=== PATIENT | female | born 1955 | race Caucasian/White ===

== ENCOUNTER 2021-10-02 19:50 | Inpatient (IN) | payer MEDICARE ==
[~2021-10-02] VITALS: Ht 167.6 cm; Wt 84.2 kg
[2021-10-02 20:39] LABS: Basophils # (auto) 0 10 ^3/uL (0-0.2); Basophils % (auto) 0.1 % (0.0-2.0); Eosinophils # (auto) 0 10 ^3/uL (0-0.8); Eosinophils % (auto) 0.1 % (0.0-7.0); Hematocrit 28.8 % (36.0-46.0); Lymphocytes # (auto) 0.5 10 ^3/uL (0.4-5.4); Lymphocytes % (auto) 4.6 % (10.0-50.0); Mean Corpuscular Hemoglobin 31.3 pg (28.0-32.0); Mean Corpuscular Hgb Conc. 34.9 g/dL (32.0-36.0); Mean Corpuscular Volume 89.7 fL (80.0-100.0); Monocytes # (auto) 0.3 10 ^3/uL (0-1.3); Monocytes % (auto) 3.3 % (0.0-12.0); Neutrophils # (auto) 9.3 10 ^3/uL (1.6-8.6); Neutrophils % (auto) 91.9 % (37.0-80.0); Nucleated Red Blood Cells % 0.3 %; Red Blood Cells 3.21 10^6/uL (4.0-5.20); Red Cell Distribution Width 17.8 % (11.8-14.3); White Blood Cell 10.1 10^3/uL (4.4-10.8)
[2021-10-02 20:53] LABS: Albumin 1.4 g/dL (3.4-5.0); Calcium 6.6 mg/dL (8.5-10.1)
[2021-10-02 20:55] LABS: Bilirubin, Total 0.6 mg/dL (0.2-1.0); Total Protein 6.6 g/dL (6.4-8.2)
[2021-10-02] MEDS ORDERED: cefTRIAXone 1GM/50ML D5W 50 ML IV ONE (21:00)
[2021-10-02] MEDS ORDERED: VANCOMYCIN PER PHARMACY 0 MG IV SCH (21:00)
[2021-10-02] MEDS ORDERED: VANCOMYCIN 1GM/250ML 250 ML IV ONE (21:00)
[2021-10-02] MEDS ORDERED: POTASSIUM EFFERVESENT TAB 25 MEQ PO ONE (21:45)
[2021-10-02 22:17] LABS: INR 1.7 (0.9-1.15)
[2021-10-03] MEDS ORDERED: HEPARIN DRIP/D5W 100UNITS/ML 250 ML IV SCH (01:00)
[2021-10-03] MEDS ORDERED: HEPARIN SODIUM (PORCINE) 5000 UNITS/ML 1ML VIAL IV ONE (01:00)
[2021-10-03 01:38] LABS: Urine WBC None Seen /hpf (0 - 5)
[2021-10-03 01:48] LABS: Urine Bacteria NONE SEEN /hpf (None Seen); Urine Blood Negative /uL (Negative); Urine Specific Gravity 1.007 (1.001-1.035)
[2021-10-03] MEDS ORDERED: ALBUMIN 25% 100 ML IV ONE (02:15)
[2021-10-03] MEDS ORDERED: DOCUSATE SOD 100 MG CAP PO PRN (02:15)
[2021-10-03] MEDS ORDERED: HYDROcodone-ACET 5/325MG TAB PO PRN (02:15)
[2021-10-03] MEDS ORDERED: SODIUM CHLORIDE 0.9% 1,000 ML IV SCH (02:15)
[2021-10-03] MEDS ORDERED: ACETAMINOPHEN 325 MG TAB PO PRN (02:15)
[2021-10-03] MEDS ORDERED: ONDANSETRON HCL 4 MG/2 ML VIAL IV PRN (02:15)
[2021-10-03] MEDS ORDERED: NITROGLYCERIN 0.4 MG SL TAB SL PRN (02:45)
[2021-10-03] MEDS ORDERED: POTASSIUM CHL 20MEQ/100ML 100 ML IV ONE (04:36)
[2021-10-03] MEDS: POTASSIUM CHL 20MEQ/100ML 100 ML IV SCH ×4 (04:45→13:35)
[2021-10-03 07:37] LABS: Basophils # (auto) 0 10 ^3/uL (0-0.2); Basophils % (auto) 0.2 % (0.0-2.0); Eosinophils # (auto) 0 10 ^3/uL (0-0.8); Hematocrit 29.3 % (36.0-46.0); Hemoglobin 10.1 g/dL (12.2-16.2); Lymphocytes # (auto) 0.8 10 ^3/uL (0.4-5.4); Mean Corpuscular Hgb Conc. 34.6 g/dL (32.0-36.0); Mean Corpuscular Volume 92.5 fL (80.0-100.0); Monocytes # (auto) 0.4 10 ^3/uL (0-1.3); Monocytes % (auto) 3.6 % (0.0-12.0); Neutrophils # (auto) 10.1 10 ^3/uL (1.6-8.6); Neutrophils % (auto) 89.2 % (37.0-80.0); Nucleated Red Blood Cells % 0.2 %; Red Blood Cells 3.16 10^6/uL (4.0-5.20); Red Cell Distribution Width 18.4 % (11.8-14.3); White Blood Cell 11.3 10^3/uL (4.4-10.8)
[2021-10-03 07:54] LABS: Albumin 1.7 g/dL (3.4-5.0); Calcium 6.6 mg/dL (8.5-10.1)
[2021-10-03 07:57] LABS: BUN/Creatinine Ratio 10.7; Bilirubin, Total 0.7 mg/dL (0.2-1.0); Total Protein 6.7 g/dL (6.4-8.2)
[2021-10-03 08:15] LABS: Potassium 2.7 mmol/L (3.5-5.1)
[2021-10-03] MEDS ORDERED: ENOXAPARIN SOD 100 MG/1 ML SYRINGE SC SCH (10:00)
[2021-10-03] MEDS: SODIUM CHLORIDE 0.9% 1,000 ML IV SCH ×2 (10:42→15:42)
[2021-10-03] MEDS: FAMOTIDINE (10MG/ML) 2ML VL IV SCH ×2 (11:06→22:00)
[2021-10-03] MEDS: HEPARIN SODIUM (PORCINE) 5000 UNITS/ML 1ML VIAL SC SCH (11:07)
[2021-10-03 12:26] LABS: INR 1.6 (0.9-1.15)
[2021-10-03] MEDS ORDERED: MAGNESIUM SULFATE 1GM/100ML 100 ML IV ONE (14:15)
[2021-10-03] MEDS ORDERED: CEFTRIAXONE SODIUM 2 GM in D5W 5% 50 ML IV ONE (17:45)
[2021-10-03] MEDS ORDERED: VANCOMYCIN 500 MG in D5W 5% 100 ML IV ONE (21:00)
[2021-10-03] MEDS: MAGNESIUM SULFATE 1GM/100ML 100 ML IV SCH (22:30)
[2021-10-03] MEDS ORDERED: VANCOMYCIN 1GM/250ML 250 ML IV ONE (22:39)
[2021-10-04] MEDS: LORazepam 2MG/ML-1ML VIAL IV PRN ×3 (00:51→20:46)
[2021-10-04] MEDS: HEPARIN SODIUM (PORCINE) 5000 UNITS/ML 1ML VIAL SC SCH ×2 (01:00→11:52)
[2021-10-04 01:24] LABS: BUN/Creatinine Ratio 11.5; Calcium 6.5 mg/dL (8.5-10.1)
[2021-10-04] MEDS: SODIUM CHLORIDE 0.9% 1,000 ML IV SCH ×4 (01:27→22:00)
[2021-10-04 01:31] LABS: Potassium 2.5 mmol/L (3.5-5.1)
[2021-10-04] MEDS: MAGNESIUM SULFATE 1GM/100ML 100 ML IV SCH ×3 (02:00→12:05)
[2021-10-04] MEDS: POTASSIUM CHL 20MEQ/100ML 100 ML IV SCH ×7 (06:15→23:46)
[2021-10-04 10:29] LABS: Hematocrit 25.4 % (36.0-46.0); Hemoglobin 8.7 g/dL (12.2-16.2); Mean Corpuscular Hgb Conc. 34.1 g/dL (32.0-36.0); Red Blood Cells 2.71 10^6/uL (4.0-5.20); Red Cell Distribution Width 18.1 % (11.8-14.3); White Blood Cell 9.6 10^3/uL (4.4-10.8)
[2021-10-04 10:39] LABS: Basophils % (manual) 0 (0.0-2.0); Blast Cells 0; Eosinophils % (manual) 0 (0-7); Metamyelocytes % 0; Myelocytes % 0; Promyelocytes % 0; Reactive Lymphocytes 0
[2021-10-04] MEDS: FAMOTIDINE (10MG/ML) 2ML VL IV SCH ×2 (10:43→22:00)
[2021-10-04 10:56] LABS: Albumin 1.4 g/dL (3.4-5.0); Calcium 6.5 mg/dL (8.5-10.1); Magnesium 2.5 mg/dL (1.6-2.6); Potassium 3.3 mmol/L (3.5-5.1)
[2021-10-04 11:01] LABS: BUN/Creatinine Ratio 11.8; Bilirubin, Total 0.5 mg/dL (0.2-1.0)
[2021-10-04 11:04] LABS: Band Neutrophils % (manual) 11; Lymphocytes % (manual) 9 (10.0-50.0); Monocytes % (manual) 2 (0-12)
[2021-10-04] MEDS: CEFTRIAXONE SODIUM 2 GM in D5W 5% 50 ML IV SCH (11:15)
[2021-10-04] MEDS ORDERED: TPN PER PHARMACY 0 ML IV SCH (12:00)
[2021-10-04] MEDS ORDERED: DEXTROSE (50%) 50ML SYRG IV PRN (12:00)
[2021-10-04] MEDS: ACCU-CHEK COMFORT CURVE STRIP VI SCH ×2 (12:05→18:10)
[2021-10-04] MEDS ORDERED: MAGNESIUM SULFATE 1GM/100ML 100 ML IV SCH (13:30)
[2021-10-04 13:48] LABS: Phosphorus 2.4 mg/dL (2.5-4.90)
[2021-10-04] MEDS ORDERED: SODIUM PHOSP 20MEQ(15MMOL) IN NS 100 ML IV ONE (15:15)
[2021-10-04 15:52] LABS: BUN/Creatinine Ratio 12.4; Calcium 6.6 mg/dL (8.5-10.1)
[2021-10-04] MEDS: InsuLIN REG 1unit/0.01ml Soln (100units/ml) SC SCH (18:00)
[2021-10-04 18:43] LABS: INR 1.41 (0.9-1.15); Partial Thromboplastin Time 48.1 sec (23.6-33.0)
[2021-10-04] MEDS ORDERED: FUROSEMIDE 100 MG/10ML VIAL IV ONE (19:00)
[2021-10-04] MEDS ORDERED: AMINO ACID INFUSION IN D10W 1,000 ML IV NR (20:00)
[2021-10-04 20:13] LABS: Hematocrit 23.5 % (36.0-46.0); Hemoglobin 8.1 g/dL (12.2-16.2)
[2021-10-05] MEDS: ACCU-CHEK COMFORT CURVE STRIP VI SCH ×4 (00:03→18:21)
[2021-10-05 00:10] LABS: Basophils # (auto) 0 10 ^3/uL (0-0.2); Eosinophils # (auto) 0 10 ^3/uL (0-0.8); Red Cell Distribution Width 18.4 % (11.8-14.3)
[2021-10-05 00:12] LABS: Basophils % (auto) 0.4 % (0.0-2.0); Eosinophils % (auto) 0.2 % (0.0-7.0); Hematocrit 22.4 % (36.0-46.0); Hemoglobin 7.9 g/dL (12.2-16.2); Lymphocytes # (auto) 0.5 10 ^3/uL (0.4-5.4); Lymphocytes % (auto) 6.3 % (10.0-50.0); Mean Corpuscular Hemoglobin 32.1 pg (28.0-32.0); Mean Corpuscular Hgb Conc. 35.2 g/dL (32.0-36.0); Mean Corpuscular Volume 91.1 fL (80.0-100.0); Monocytes # (auto) 0.3 10 ^3/uL (0-1.3); Monocytes % (auto) 3.1 % (0.0-12.0); Neutrophils # (auto) 7.4 10 ^3/uL (1.6-8.6); Nucleated Red Blood Cells % 0.2 %; Red Blood Cells 2.46 10^6/uL (4.0-5.20); White Blood Cell 8.2 10^3/uL (4.4-10.8)
[2021-10-05 00:41] LABS: Albumin 1.4 g/dL (3.4-5.0); Calcium 6.6 mg/dL (8.5-10.1); Potassium 3.3 mmol/L (3.5-5.1)
[2021-10-05 00:43] LABS: BUN/Creatinine Ratio 12.5
[2021-10-05] MEDS ORDERED: PANTOPRAZOLE 40 MG/10 ML VIAL INJ IV ONE (00:45)
[2021-10-05 00:46] LABS: Bilirubin, Total 0.4 mg/dL (0.2-1.0); Total Protein 5.5 g/dL (6.4-8.2)
[2021-10-05 03:22] LABS: Albumin 1.4 g/dL (3.4-5.0); BUN/Creatinine Ratio 11.9; Calcium 6.6 mg/dL (8.5-10.1); Potassium 3.7 mmol/L (3.5-5.1)
[2021-10-05 03:25] LABS: Bilirubin, Total 0.4 mg/dL (0.2-1.0); Total Protein 5.6 g/dL (6.4-8.2)
[2021-10-05] MEDS: POTASSIUM CHL 20MEQ/100ML 100 ML IV SCH (03:59)
[2021-10-05 04:59] LABS: Basophils # (auto) 0.1 10 ^3/uL (0-0.2); Eosinophils # (auto) 0 10 ^3/uL (0-0.8); Hemoglobin 7.8 g/dL (12.2-16.2); Lymphocytes # (auto) 0.5 10 ^3/uL (0.4-5.4); Mean Corpuscular Hemoglobin 31.7 pg (28.0-32.0); White Blood Cell 7.7 10^3/uL (4.4-10.8)
[2021-10-05 05:01] LABS: Basophils % (auto) 0.9 % (0.0-2.0); Hematocrit 22.4 % (36.0-46.0); Lymphocytes % (auto) 6.4 % (10.0-50.0); Mean Corpuscular Hgb Conc. 34.7 g/dL (32.0-36.0); Mean Corpuscular Volume 91.5 fL (80.0-100.0); Monocytes # (auto) 0.3 10 ^3/uL (0-1.3); Monocytes % (auto) 3.4 % (0.0-12.0); Neutrophils # (auto) 6.8 10 ^3/uL (1.6-8.6); Neutrophils % (auto) 89.3 % (37.0-80.0); Nucleated Red Blood Cells % 0.3 %; Red Blood Cells 2.45 10^6/uL (4.0-5.20); Red Cell Distribution Width 18.2 % (11.8-14.3)
[2021-10-05 05:23] LABS: Albumin 1.4 g/dL (3.4-5.0); BUN/Creatinine Ratio 12.4; Calcium 6.7 mg/dL (8.5-10.1); Magnesium 2.2 mg/dL (1.6-2.6); Potassium 3.3 mmol/L (3.5-5.1)
[2021-10-05 05:25] LABS: Bilirubin, Total 0.4 mg/dL (0.2-1.0); Phosphorus 2.4 mg/dL (2.5-4.90); Total Protein 5.4 g/dL (6.4-8.2)
[2021-10-05] MEDS: InsuLIN REG 1unit/0.01ml Soln (100units/ml) SC SCH ×4 (06:00→18:37)
[2021-10-05] MEDS ORDERED: POTASSIUM PHOSPHATE 44 MEQ in D5W 5% 250 ML IV ONE (09:00)
[2021-10-05] MEDS ORDERED: POTASSIUM CHL 20MEQ/100ML 100 ML IV ONE (09:00)
[2021-10-05] MEDS: FAMOTIDINE (10MG/ML) 2ML VL IV SCH ×2 (10:00→22:07)
[2021-10-05] MEDS: POTASSIUM EFFERVESENT TAB 25 MEQ PO SCH ×2 (10:00→21:56)
[2021-10-05] MEDS: FUROSEMIDE 40 MG/4 ML VIAL IV SCH ×2 (10:00→16:15)
[2021-10-05] MEDS: CEFTRIAXONE SODIUM 2 GM in D5W 5% 50 ML IV SCH (10:04)
[2021-10-05] MEDS: SODIUM CHLORIDE 0.9% 1,000 ML IV SCH ×2 (10:05→13:46)
[2021-10-05] MEDS: PANTOPRAZOLE 40 MG/10 ML VIAL INJ IV SCH ×2 (10:25→22:07)
[2021-10-05] MEDS ORDERED: VANCOMYCIN 500 MG in D5W 5% 100 ML IV ONE (14:00)
[2021-10-05] MEDS: MORPHINE SULFATE INJ 2 MG/ml SYRG IV PRN (14:14)
[2021-10-05] MEDS: POTASSIUM CHL 20MEQ/100ML 100 ML IV ONE ×2 (16:00→18:16)
[2021-10-05] MEDS ORDERED: TPN PER PHARMACY IV NR ×8 (20:00)
[2021-10-06] MEDS: ACCU-CHEK COMFORT CURVE STRIP VI SCH ×4 (00:02→18:25)
[2021-10-06] MEDS: MORPHINE SULFATE INJ 2 MG/ml SYRG IV PRN ×2 (01:25→08:21)
[2021-10-06 05:44] LABS: Basophils # (auto) 0 10 ^3/uL (0-0.2); Basophils % (auto) 0.4 % (0.0-2.0); Eosinophils # (auto) 0 10 ^3/uL (0-0.8); Eosinophils % (auto) 0.1 % (0.0-7.0); Hematocrit 20.3 % (36.0-46.0); Hemoglobin 7.1 g/dL (12.2-16.2); Lymphocytes # (auto) 0.9 10 ^3/uL (0.4-5.4); Mean Corpuscular Hemoglobin 32.5 pg (28.0-32.0); Mean Corpuscular Hgb Conc. 35.1 g/dL (32.0-36.0); Mean Corpuscular Volume 92.5 fL (80.0-100.0); Monocytes # (auto) 0.3 10 ^3/uL (0-1.3); Monocytes % (auto) 4.5 % (0.0-12.0); Neutrophils # (auto) 5.4 10 ^3/uL (1.6-8.6); Nucleated Red Blood Cells % 0.1 %; Red Cell Distribution Width 18.7 % (11.8-14.3); White Blood Cell 6.6 10^3/uL (4.4-10.8)
[2021-10-06 05:59] LABS: Albumin 1.3 g/dL (3.4-5.0); BUN/Creatinine Ratio 13.9; Calcium 6.7 mg/dL (8.5-10.1); Magnesium 1.9 mg/dL (1.6-2.6); Potassium 3.3 mmol/L (3.5-5.1)
[2021-10-06] MEDS: SODIUM CHLORIDE 0.9% 1,000 ML IV SCH ×2 (06:00→21:19)
[2021-10-06] MEDS: InsuLIN REG 1unit/0.01ml Soln (100units/ml) SC SCH ×4 (06:00→18:33)
[2021-10-06 06:17] LABS: Bilirubin, Total 0.3 mg/dL (0.2-1.0); Phosphorus 3.1 mg/dL (2.5-4.90)
[2021-10-06] MEDS ORDERED: diphenhdrAMINE HCL 50 MG/1 ML VL ONE (08:26)
[2021-10-06] MEDS ORDERED: LIDOCAINE VISCOUS 2% 15ML UD ONE (08:26)
[2021-10-06] MEDS ORDERED: SODIUM CHLORIDE LOCK 10 ML ONE (08:27)
[2021-10-06] MEDS ORDERED: POTASSIUM CHL 20MEQ/100ML 100 ML IV ONE (08:45)
[2021-10-06] MEDS: POTASSIUM EFFERVESENT TAB 25 MEQ PO SCH (10:00)
[2021-10-06] MEDS: FUROSEMIDE 40 MG/4 ML VIAL IV SCH (10:00)
[2021-10-06] MEDS: PANTOPRAZOLE 40 MG/10 ML VIAL INJ IV SCH ×2 (10:37→21:24)
[2021-10-06] MEDS: FAMOTIDINE (10MG/ML) 2ML VL IV SCH (10:41)
[2021-10-06] MEDS ORDERED: MORPHINE SULFATE INJ 2 MG/ml SYRG IV PRN ×2 (11:45→13:15)
[2021-10-06] MEDS: CEFTRIAXONE SODIUM 2 GM in D5W 5% 50 ML IV SCH (11:50)
[2021-10-06] MEDS: fentaNYL CITRATE 100 MCG/2 ML VL ONE ×2 (14:07→14:12)
[2021-10-06] MEDS: MIDAZOLAM HCL 5 MG/ML-1ML VIAL ONE ×2 (14:07→14:10)
[2021-10-06] MEDS ORDERED: METO-289 PO (16:44)
[2021-10-06] MEDS ORDERED: FLEC100T PO (16:48)
[2021-10-06] MEDS ORDERED: POTA1TAB4 (16:48)
[2021-10-06] MEDS ORDERED: HYDR-4611 (16:48)
[2021-10-06] MEDS ORDERED: ONDA-188 PO (16:48)
[2021-10-06] MEDS ORDERED: DICY20TA PO (16:48)
[2021-10-06] MEDS ORDERED: AMIO200T4 PO (16:48)
[2021-10-06] MEDS ORDERED: FUR20T PO (16:48)
[2021-10-06] MEDS ORDERED: SERT50TA19 PO (16:58)
[2021-10-06 17:00] VITALS: BP 121/50
[2021-10-06] MEDS ORDERED: APIX5TAB PO (17:06)
[2021-10-06 17:09] VITALS: BP 121/50
[2021-10-06 20:00] VITALS: BP 108/60
[2021-10-06] MEDS ORDERED: TPN PER PHARMACY IV NR ×8 (20:00)
[2021-10-06] MEDS: LORazepam 2MG/ML-1ML VIAL IV PRN (21:12)
[2021-10-06 21:51] VITALS: BP 109/60
[2021-10-07] VITALS (7 sets, daily range): BP systolic 94–120; BP diastolic 50–75
[2021-10-07] MEDS: ACCU-CHEK COMFORT CURVE STRIP VI SCH ×4 (02:21→18:13)
[2021-10-07] MEDS: InsuLIN REG 1unit/0.01ml Soln (100units/ml) SC SCH ×4 (02:31→18:12)
[2021-10-07 05:39] LABS: Basophils # (auto) 0 10 ^3/uL (0-0.2); Eosinophils # (auto) 0 10 ^3/uL (0-0.8); Hemoglobin 7.3 g/dL (12.2-16.2)
[2021-10-07 05:42] LABS: Basophils % (auto) 0.1 % (0.0-2.0); Eosinophils % (auto) 0.4 % (0.0-7.0); Hematocrit 20.8 % (36.0-46.0); Lymphocytes # (auto) 0.8 10 ^3/uL (0.4-5.4); Lymphocytes % (auto) 11.4 % (10.0-50.0); Mean Corpuscular Hemoglobin 32.5 pg (28.0-32.0); Mean Corpuscular Hgb Conc. 35.1 g/dL (32.0-36.0); Mean Corpuscular Volume 92.8 fL (80.0-100.0); Monocytes # (auto) 0.3 10 ^3/uL (0-1.3); Monocytes % (auto) 4.2 % (0.0-12.0); Neutrophils # (auto) 6.1 10 ^3/uL (1.6-8.6); Neutrophils % (auto) 83.9 % (37.0-80.0); Nucleated Red Blood Cells % 0.3 %; Red Blood Cells 2.25 10^6/uL (4.0-5.20); White Blood Cell 7.2 10^3/uL (4.4-10.8)
[2021-10-07 05:56] LABS: Albumin 1.2 g/dL (3.4-5.0); BUN/Creatinine Ratio 15.8; Calcium 6.7 mg/dL (8.5-10.1); Magnesium 1.8 mg/dL (1.6-2.6); Potassium 3.6 mmol/L (3.5-5.1)
[2021-10-07 05:59] LABS: Bilirubin, Total 0.3 mg/dL (0.2-1.0); Phosphorus 2.3 mg/dL (2.5-4.90)
[2021-10-07] MEDS ORDERED: POTASSIUM PHOSP 22MEQ(15MMOLE) in NS 100 ML IV ONE (08:30)
[2021-10-07] MEDS: PANTOPRAZOLE 40 MG/10 ML VIAL INJ IV SCH ×2 (10:16→22:17)
[2021-10-07] MEDS: FAMOTIDINE (10MG/ML) 2ML VL IV SCH (10:17)
[2021-10-07] MEDS: CEFTRIAXONE SODIUM 2 GM in D5W 5% 50 ML IV SCH (10:18)
[2021-10-07] MEDS ORDERED: HYDR-4798 PO (10:38)
[2021-10-07] MEDS: FUROSEMIDE 40 MG/4 ML VIAL IV SCH (10:45)
[2021-10-07] MEDS ORDERED: ACETAMINOPHEN 650 MG RECT SUPP PR ONE (16:45)
[2021-10-07] MEDS: SODIUM CHLORIDE 0.9% 1,000 ML IV SCH (16:49)
[2021-10-07] MEDS ORDERED: VANCOMYCIN 500 MG in D5W 5% 100 ML IV ONE (18:00)
[2021-10-07] MEDS: TPN PER PHARMACY IV NR ×8 (20:07)
[2021-10-08] VITALS (7 sets, daily range): BP systolic 90–123; BP diastolic 54–77
[2021-10-08] MEDS: InsuLIN REG 1unit/0.01ml Soln (100units/ml) SC SCH ×4 (00:08→17:53)
[2021-10-08] MEDS: ACCU-CHEK COMFORT CURVE STRIP VI SCH ×4 (00:08→17:53)
[2021-10-08 05:59] LABS: Basophils # (auto) 0.1 10 ^3/uL (0-0.2); Eosinophils # (auto) 0 10 ^3/uL (0-0.8); Eosinophils % (auto) 0.3 % (0.0-7.0); Monocytes # (auto) 0.4 10 ^3/uL (0-1.3); Red Blood Cells 2.47 10^6/uL (4.0-5.20)
[2021-10-08 06:02] LABS: Basophils % (auto) 1.1 % (0.0-2.0); Hematocrit 22.8 % (36.0-46.0); Hemoglobin 7.9 g/dL (12.2-16.2); Lymphocytes # (auto) 0.8 10 ^3/uL (0.4-5.4); Lymphocytes % (auto) 7.4 % (10.0-50.0); Mean Corpuscular Hemoglobin 32.1 pg (28.0-32.0); Mean Corpuscular Hgb Conc. 34.8 g/dL (32.0-36.0); Mean Corpuscular Volume 92.3 fL (80.0-100.0); Neutrophils # (auto) 9.6 10 ^3/uL (1.6-8.6); Neutrophils % (auto) 87.2 % (37.0-80.0); Nucleated Red Blood Cells % 0.2 %; Red Cell Distribution Width 17.8 % (11.8-14.3)
[2021-10-08 06:23] LABS: Potassium 3.9 mmol/L (3.5-5.1)
[2021-10-08 06:27] LABS: Albumin 1.1 g/dL (3.4-5.0); BUN/Creatinine Ratio 17.3; Bilirubin, Total 0.4 mg/dL (0.2-1.0); Magnesium 1.9 mg/dL (1.6-2.6); Total Protein 5.4 g/dL (6.4-8.2)
[2021-10-08] MEDS ORDERED: SODIUM PHOSP 40 MEQ in D5W 5% 250 ML IV ONE (09:15)
[2021-10-08] MEDS ORDERED: FUROSEMIDE 40 MG/4 ML VIAL IV SCH (10:00)
[2021-10-08] MEDS: FAMOTIDINE (10MG/ML) 2ML VL IV SCH (11:09)
[2021-10-08] MEDS: PANTOPRAZOLE 40 MG/10 ML VIAL INJ IV SCH ×2 (11:10→21:39)
[2021-10-08] MEDS: CEFTRIAXONE SODIUM 2 GM in D5W 5% 50 ML IV SCH (11:11)
[2021-10-08] MEDS: TPN PER PHARMACY IV NR ×8 (19:57)
[2021-10-08] MEDS ORDERED: TPN PER PHARMACY IV NR ×9 (20:00)
[2021-10-09] MEDS: ACCU-CHEK COMFORT CURVE STRIP VI SCH ×4 (00:13→18:10)
[2021-10-09] MEDS: InsuLIN REG 1unit/0.01ml Soln (100units/ml) SC SCH ×4 (00:23→18:10)
[2021-10-09 05:00] VITALS: BP 114/70
[2021-10-09] MEDS: MORPHINE SULFATE INJ 2 MG/ml SYRG IV PRN ×2 (05:27→22:20)
[2021-10-09 07:58] LABS: Hematocrit 21.9 % (36.0-46.0); Hemoglobin 7.6 g/dL (12.2-16.2); Mean Corpuscular Hgb Conc. 34.6 g/dL (32.0-36.0); Mean Corpuscular Volume 92.5 fL (80.0-100.0); Red Blood Cells 2.37 10^6/uL (4.0-5.20); Red Cell Distribution Width 18.3 % (11.8-14.3); White Blood Cell 9.1 10^3/uL (4.4-10.8)
[2021-10-09 08:02] LABS: Band Neutrophils % (manual) 0; Basophils % (manual) 0 (0.0-2.0); Blast Cells 0; Eosinophils % (manual) 0 (0-7); Metamyelocytes % 0; Promyelocytes % 0; Reactive Lymphocytes 0
[2021-10-09 08:21] LABS: Albumin 1.1 g/dL (3.4-5.0); Calcium 7.6 mg/dL (8.5-10.1); Magnesium 2.5 mg/dL (1.6-2.6); Potassium 3.3 mmol/L (3.5-5.1)
[2021-10-09 08:27] LABS: BUN/Creatinine Ratio 20.5; Bilirubin, Total 0.4 mg/dL (0.2-1.0); Phosphorus 4.8 mg/dL (2.5-4.90); Total Protein 5.7 g/dL (6.4-8.2)
[2021-10-09 08:46] LABS: Lymphocytes % (manual) 8 (10.0-50.0); Monocytes % (manual) 6 (0-12); Myelocytes % 1
[2021-10-09 09:00] VITALS: BP 119/64
[2021-10-09] MEDS: SOD CHL 0.45% 1,000 ML IV SCH ×2 (10:00→10:30)
[2021-10-09] MEDS: CEFTRIAXONE SODIUM 2 GM in D5W 5% 50 ML IV SCH (10:00)
[2021-10-09] MEDS: PANTOPRAZOLE 40 MG/10 ML VIAL INJ IV SCH ×2 (10:29→21:07)
[2021-10-09] MEDS: FAMOTIDINE (10MG/ML) 2ML VL IV SCH (10:29)
[2021-10-09] MEDS: POTASSIUM CHL 20MEQ/100ML 100 ML IV SCH ×2 (10:30→11:00)
[2021-10-09 13:07] VITALS: BP 130/75
[2021-10-09 17:00] VITALS: BP 124/73
[2021-10-09] MEDS ORDERED: POTASSIUM CHL 20MEQ/100ML 100 ML IV ONE (17:30)
[2021-10-09] MEDS ORDERED: TPN PER PHARMACY IV NR ×8 (20:00)
[2021-10-09] MEDS ORDERED: D5W 5% 1,000 ML IV SCH (21:00)
[2021-10-09 22:00] VITALS: BP 133/79
[2021-10-10] MEDS: LORazepam 2MG/ML-1ML VIAL IV PRN ×2 (00:12→11:38)
[2021-10-10] MEDS: InsuLIN REG 1unit/0.01ml Soln (100units/ml) SC SCH ×3 (00:16→12:00)
[2021-10-10] MEDS: ACCU-CHEK COMFORT CURVE STRIP VI SCH ×3 (00:17→12:00)
[2021-10-10 05:00] VITALS: BP_SYST 115; BP_SYST 155; BP_DIAS 58; BP_DIAS 77
[2021-10-10 09:00] VITALS: BP 128/77
[2021-10-10 10:27] LABS: Hemoglobin 7.3 g/dL (12.2-16.2); Monocytes # (auto) 0.4 10 ^3/uL (0-1.3); Neutrophils # (auto) 6.1 10 ^3/uL (1.6-8.6)
[2021-10-10 10:29] LABS: Basophils # (auto) 0 10 ^3/uL (0-0.2); Basophils % (auto) 0.4 % (0.0-2.0); Eosinophils # (auto) 0.1 10 ^3/uL (0-0.8); Eosinophils % (auto) 0.7 % (0.0-7.0); Hematocrit 21.1 % (36.0-46.0); Lymphocytes # (auto) 1.2 10 ^3/uL (0.4-5.4); Lymphocytes % (auto) 15.6 % (10.0-50.0); Mean Corpuscular Hgb Conc. 34.4 g/dL (32.0-36.0); Mean Corpuscular Volume 93.3 fL (80.0-100.0); Neutrophils % (auto) 78.3 % (37.0-80.0); Nucleated Red Blood Cells % 0.3 %; Red Blood Cells 2.27 10^6/uL (4.0-5.20); Red Cell Distribution Width 18.8 % (11.8-14.3); White Blood Cell 7.9 10^3/uL (4.4-10.8)
[2021-10-10 10:44] LABS: Potassium 4.4 mmol/L (3.5-5.1)
[2021-10-10 10:48] LABS: BUN/Creatinine Ratio 24.1; Calcium 7.3 mg/dL (8.5-10.1); Phosphorus 3.2 mg/dL (2.5-4.90)
[2021-10-10 10:56] LABS: Calcium 7.6 mg/dL (8.5-10.1); Magnesium 2.4 mg/dL (1.6-2.6); Potassium 4.4 mmol/L (3.5-5.1)
[2021-10-10 10:59] LABS: BUN/Creatinine Ratio 23.5; Bilirubin, Total 0.3 mg/dL (0.2-1.0); Phosphorus 3.3 mg/dL (2.5-4.90); Pre Albumin 8.2 mg/dL (20.0-40.0); Total Protein 5.5 g/dL (6.4-8.2)
[2021-10-10] MEDS: CEFTRIAXONE SODIUM 2 GM in D5W 5% 50 ML IV SCH (11:33)
[2021-10-10] MEDS: PANTOPRAZOLE 40 MG/10 ML VIAL INJ IV SCH ×2 (11:33→21:26)
[2021-10-10 13:00] VITALS: BP 102/66
[2021-10-10] MEDS ORDERED: VANCOMYCIN 500 MG in D5W 5% 100 ML IV ONE (13:00)
[2021-10-10] MEDS ORDERED: FUROSEMIDE 40 MG/4 ML VIAL IV ONE (13:15)
[2021-10-10 17:00] VITALS: BP 102/77
[2021-10-10] MEDS ORDERED: TPN PER PHARMACY IV NR ×8 (20:00)
[2021-10-10] MEDS: MORPHINE SULFATE INJ 2 MG/ml SYRG IV PRN (21:27)
[2021-10-10 22:00] VITALS: BP 121/63
[2021-10-11] MEDS: MORPHINE SULFATE INJ 2 MG/ml SYRG IV PRN ×2 (04:59→15:41)
[2021-10-11 05:00] VITALS: BP 131/73
[2021-10-11] MEDS: ACCU-CHEK COMFORT CURVE STRIP VI SCH ×4 (05:38→18:00)
[2021-10-11] MEDS: InsuLIN REG 1unit/0.01ml Soln (100units/ml) SC SCH ×4 (05:39→18:00)
[2021-10-11 06:14] LABS: Basophils # (auto) 0 10 ^3/uL (0-0.2); Eosinophils # (auto) 0 10 ^3/uL (0-0.8); Hemoglobin 7.6 g/dL (12.2-16.2); Lymphocytes # (auto) 0.9 10 ^3/uL (0.4-5.4); Monocytes # (auto) 0.4 10 ^3/uL (0-1.3)
[2021-10-11 06:22] LABS: Albumin 1.1 g/dL (3.4-5.0); BUN/Creatinine Ratio 27.7; Calcium 7.7 mg/dL (8.5-10.1); Magnesium 2.2 mg/dL (1.6-2.6); Phosphorus 1.9 mg/dL (2.5-4.90); Potassium 4.9 mmol/L (3.5-5.1); Total Protein 5.5 g/dL (6.4-8.2)
[2021-10-11 06:23] LABS: Bilirubin, Total 0.4 mg/dL (0.2-1.0)
[2021-10-11 06:24] LABS: Basophils % (auto) 0.5 % (0.0-2.0); Eosinophils % (auto) 0.4 % (0.0-7.0); Hematocrit 22.4 % (36.0-46.0); Lymphocytes % (auto) 12.2 % (10.0-50.0); Mean Corpuscular Hemoglobin 32.3 pg (28.0-32.0); Mean Corpuscular Hgb Conc. 34.1 g/dL (32.0-36.0); Mean Corpuscular Volume 94.7 fL (80.0-100.0); Monocytes % (auto) 5.2 % (0.0-12.0); Neutrophils # (auto) 6.1 10 ^3/uL (1.6-8.6); Neutrophils % (auto) 81.7 % (37.0-80.0); Nucleated Red Blood Cells % 0.1 %; Red Blood Cells 2.37 10^6/uL (4.0-5.20); Red Cell Distribution Width 18.9 % (11.8-14.3); White Blood Cell 7.4 10^3/uL (4.4-10.8)
[2021-10-11 06:30] LABS: BUN/Creatinine Ratio 29.7; Calcium 7.9 mg/dL (8.5-10.1); Potassium 4.9 mmol/L (3.5-5.1)
[2021-10-11] MEDS ORDERED: SODIUM PHOSPHATES 24 MEQ in SODIUM CHL 0.9% 100 ML IV ONE (08:45)
[2021-10-11 09:00] VITALS: BP 104/68
[2021-10-11] MEDS: PANTOPRAZOLE 40 MG/10 ML VIAL INJ IV SCH ×2 (10:02→22:00)
[2021-10-11] MEDS: CEFTRIAXONE SODIUM 2 GM in D5W 5% 50 ML IV SCH (10:03)
[2021-10-11 13:00] VITALS: BP 117/75
[2021-10-11] MEDS ORDERED: FUROSEMIDE 40 MG/4 ML VIAL IV ONE (14:45)
[2021-10-11] MEDS: LORazepam 2MG/ML-1ML VIAL IV PRN (16:10)
[2021-10-11 17:00] VITALS: BP 119/78
[2021-10-11] MEDS ORDERED: TPN PER PHARMACY IV NR ×8 (20:00)
[2021-10-11 22:00] VITALS: BP 112/66
[2021-10-12] MEDS: InsuLIN REG 1unit/0.01ml Soln (100units/ml) SC SCH ×3 (00:26→14:40)
[2021-10-12] MEDS: ACCU-CHEK COMFORT CURVE STRIP VI SCH ×3 (00:26→14:30)
[2021-10-12 05:00] VITALS: BP 131/74
[2021-10-12 05:44] LABS: Basophils # (auto) 0 10 ^3/uL (0-0.2); Basophils % (auto) 0.5 % (0.0-2.0); Eosinophils # (auto) 0 10 ^3/uL (0-0.8); Hematocrit 23.7 % (36.0-46.0); Hemoglobin 7.8 g/dL (12.2-16.2); Lymphocytes # (auto) 0.8 10 ^3/uL (0.4-5.4); Lymphocytes % (auto) 9.2 % (10.0-50.0); Mean Corpuscular Hemoglobin 32.1 pg (28.0-32.0); Mean Corpuscular Hgb Conc. 33.1 g/dL (32.0-36.0); Mean Corpuscular Volume 96.9 fL (80.0-100.0); Monocytes # (auto) 0.4 10 ^3/uL (0-1.3); Monocytes % (auto) 4.1 % (0.0-12.0); Neutrophils # (auto) 7.5 10 ^3/uL (1.6-8.6); Neutrophils % (auto) 86.2 % (37.0-80.0); Nucleated Red Blood Cells % 0.1 %; Red Blood Cells 2.44 10^6/uL (4.0-5.20); Red Cell Distribution Width 19.4 % (11.8-14.3); White Blood Cell 8.7 10^3/uL (4.4-10.8)
[2021-10-12 06:05] LABS: Calcium 7.8 mg/dL (8.5-10.1); Magnesium 2.4 mg/dL (1.6-2.6); Potassium 4.7 mmol/L (3.5-5.1)
[2021-10-12 06:08] LABS: Bilirubin, Total 0.4 mg/dL (0.2-1.0); Phosphorus 3.4 mg/dL (2.5-4.90)
[2021-10-12 06:10] LABS: BUN/Creatinine Ratio 35.6
[2021-10-12 08:18] VITALS: BP 110/75
[2021-10-12] MEDS: PANTOPRAZOLE 40 MG/10 ML VIAL INJ IV SCH (09:29)
[2021-10-12] MEDS ORDERED: FUROSEMIDE 20 MG/2 ML VIAL IV ONE (10:15)
[2021-10-12] MEDS: CEFTRIAXONE SODIUM 2 GM in D5W 5% 50 ML IV SCH (10:55)
[2021-10-12 11:38] VITALS: BP 117/75
[2021-10-12 13:00] VITALS: BP 113/76
[2021-10-12] MEDS ORDERED: FUROSEMIDE 20 MG/2 ML VIAL IV SCH (18:00)
[2021-10-12] MEDS ORDERED: FAT EMULSION IV NR ×6 (20:00)
[2021-10-12] MEDS ORDERED: MULTIPLE VIT IV NR ×6 (20:00)
[2021-10-12] MEDS ORDERED: [UNRECOGNIZED DRUG - OTHER] IV NR ×6 (20:00)
[2021-10-12] MEDS ORDERED: MAGNESIUM SULF IV NR ×6 (20:00)
[2021-10-12] MEDS ORDERED: VIT K IV NR ×6 (20:00)
== END 2021-10-12 15:45 | disposition hospice, home (50) | DRG 435 ==
LOC: EDBD 19:50 → ER 19:50 → INTOOBSV 10-03 02:43 → OBSVTOIN 10-03 02:43 → OVERFLOW 10-03 02:43 → TELE-CENTR 10-06 16:05
PROVIDERS: ADMIT Nurse Practitioner Family; ATTEND Internal Medicine Geriatric Medicine
PROC: 05HA33Z Insertion of Infusion Device into Left Brachial Vein, Percutaneous Approach (ICD-10-PCS; 2021-10-03)
PROC: B54NZZA Ultrasonography of Left Upper Extremity Veins, Guidance (ICD-10-PCS; 2021-10-03)
PROC: 06HY33Z Insertion of Infusion Device into Lower Vein, Percutaneous Approach (ICD-10-PCS; 2021-10-05)
PROC: 0DJ08ZZ Inspection of Upper Intestinal Tract, Via Natural or Artificial Opening Endoscopic (ICD-10-PCS; 2021-10-06)
PROC: 30233N1 Transfusion of Nonautologous Red Blood Cells into Peripheral Vein, Percutaneous Approach (ICD-10-PCS; principal; 2021-10-07)
DX: C22.9 Malignant neoplasm of liver, not specified as primary or secondary (principal); E43 Unspecified severe protein-calorie malnutrition; N17.0 Acute kidney failure with tubular necrosis; K29.71 Gastritis, unspecified, with bleeding; I13.0 Hypertensive heart and chronic kidney disease with heart failure and stage 1 through stage 4 chronic kidney disease, or unspecified chronic kidney disease; E87.1 Hypo-osmolality and hyponatremia; E87.0 Hyperosmolality and hypernatremia; E87.2 Acidosis; N18.4 Chronic kidney disease, stage 4 (severe); Z66 Do not resuscitate; Z20.822 Contact with and (suspected) exposure to COVID-19; D3A.00 Benign carcinoid tumor of unspecified site; E78.5 Hyperlipidemia, unspecified; D63.8 Anemia in other chronic diseases classified elsewhere; E83.42 Hypomagnesemia; E88.09 Other disorders of plasma-protein metabolism, not elsewhere classified; I48.0 Paroxysmal atrial fibrillation; R04.0 Epistaxis; D50.0 Iron deficiency anemia secondary to blood loss (chronic); E66.9 Obesity, unspecified; E87.6 Hypokalemia; I45.10 Unspecified right bundle-branch block; J44.9 Chronic obstructive pulmonary disease, unspecified; Z51.5 Encounter for palliative care; Z79.01 Long term (current) use of anticoagulants; Z82.49 Family history of ischemic heart disease and other diseases of the circulatory system; Z95.0 Presence of cardiac pacemaker; Z68.36 Body mass index [BMI] 36.0-36.9, adult; Z88.5 Allergy status to narcotic agent; Z88.0 Allergy status to penicillin
CPT/HCPCS: 36415; 70450; 71045; 74176; 80048; 80053; 80069; 80202; 81001; 82040; 82140; 82270; 82962; 83036; 83605; 83615; 83735; 83880; 83930; 83935; 84100; 84443; 84478; 84484; 85007; 85014; 85018; 85025; 85027; 85045; 85379; 85610; 85730; 86850; 86880; 86900; 86901; 86920; 87040; 93005; 93306; 96365; 96368; C9113; G0378; J0696; J1815; J2250; J2405; J3480; J3490; J7060; P9047